=== PATIENT | male | born 1975 | race Caucasian/White ===

== ENCOUNTER 2016-10-31 18:50 | Emergency (ER) | payer BC ==
[~2016-10-31 18:50] MED LIST: ALBUTEROL17 GM INH; IBUPROFEN800 MG PO; NO MEDICATIONS; PERCOCET 5-3251 TAB PO; ROBITUSSIN A-C S5 ML PO; SKELAXIN PO; VIBRAMYCIN100 M1 PO; VOLTAREN50 MG PO
== END 2016-10-31 19:40 | disposition left against medical advice (07) ==
LOC: SED 18:50
DX: Z53.21 Procedure and treatment not carried out due to patient leaving prior to being seen by health care provider (principal)